=== PATIENT | female | born 1975 | race Caucasian/White ===

== ENCOUNTER 2024-03-25 08:05 | Outpatient (AMB) | payer OTHER, SELFPAY ==
--- NOTE | 2024-03-25 08:06 | MHC.OFFWIV ---
Intake Vital Signs 03/25/24 08:07 Height 5 ft 3 in Weight 241 lb BMI 42.7 BP 118/80 Blood Pressure Location Lt radial Position Sitting Pulse 112 H Pulse Source Pulse Oximeter Temp 99.1 F Temp Source Oral Pulse Oximetry (%) 98 Oxygen Delivery Method Room Air Intake Visit Reasons: EP Congestion, sore throat Intake Note: pt c/o congestion and sore throat. Started last week. Patient Tobacco Use Status: Never used Tobacco Allergies No Known Allergies Allergy (Verified 03/25/24 08:06) Do you need a note to return to daycare/school/sports/work: No HPI EP Congestion, sore throat HPI Details 48 yr old female presents to the office for a sick visit. Complains of shortness of breath for the past few days, congestion sx, minimal fever or chills. Family member is sick. [facility] Social History Patient Tobacco Use Status: Never used Tobacco Physical Exam Vital Signs: Last Vital Signs Temp 99.1 F 03/25/24 08:07 Pulse 112 H 03/25/24 08:07 BP 118/80 03/25/24 08:07 Pulse Ox 98 03/25/24 08:07 Oxygen Delivery Method Room Air 03/25/24 08:07 BMI result Body Mass Index 42.7 Const General: cooperative and healthy appearing Nutritional Appearance: well nourished Orientation/consciousness: patient oriented x3 Limitations: no limitations HEENT Head: Yes normal to inspection Eyes General: appearance normal, both eyes and all related structures Neck Neck: Yes normal visual inspection Chest Chest palpation & inspection: normal palpation of entire chest wall Resp Effort & Inspection: normal respiratory effort Neuro General: patient oriented x3 Results AMB Rapid Strep AMB Rapid Strep Negative Last Edit by Ryan De La Torre CMA on 03/25/24 08:23 Results Reviewed Results Reviewed: Laboratory Last Values Strep Scn Rapid [facility] Negative 03/25/24 08:13 Assessment & Plan Assessment & Plan (1) Upper respiratory infection, viral: Code(s): J06.9 - Acute upper respiratory infection, unspecified Plan: Azithromycin, prednisone and albuterol MDI given. Viral swab ordered. Will call with results Orders: Orders AMB Rapid Strep Screen Today Z13.9 - Encounter for screening, unspecified Coding Level of Care Code Est Pt Level 3 (17237) Diagnoses Upper respiratory infection, viral J06.9
[2024-03-25 08:07] VITALS: BP 118/80; PULSE 112; TEMP 37.3; O2SAT 98; BMI 42.7
== END 2024-03-25 08:30 | disposition home or self-care (01) ==
PROVIDERS: PCP Internal Medicine; Visit Provider Internal Medicine
DX: Z13.9 Encounter for screening, unspecified (principal); J06.9 Acute upper respiratory infection, unspecified
CPT/HCPCS: 87880; 99213

== ENCOUNTER 2024-03-25 09:26 | Outpatient (REF) | payer OTHER, SELFPAY ==
[2024-03-25 10:56] LABS: Influenza A PCR NEGATIVE (Negative); Influenza B PCR NEGATIVE (Negative); Resp Syncy Virus RNA Qual PCR NEGATIVE (Negative); SARS COV2 PCR INHOUSE POSITIVE (Negative)
== END 2024-03-25 09:27 | disposition home or self-care (01) ==
LOC: HO.LAB 09:26
PROVIDERS: Visit Provider Internal Medicine
DX: J06.9 Acute upper respiratory infection, unspecified (principal)
CPT/HCPCS: 0241U

== ENCOUNTER 2024-06-20 08:44 | Outpatient (REF) | payer OTHER, SELFPAY ==
[2024-06-20 13:14] LABS: MANUAL DIFF FLAG NO
[2024-06-20 13:20] LABS: Basophils Percent Auto 0.4 % (0-2); Eosinophils Absolute Auto 0.1 X10*3/uL (0.0-0.4); Eosinophils Percent Auto 1.7 % (0-4); Hematocrit 44.2 % (37.0-47.0); Hemoglobin 14.7 g/dl (12.0-16.0); Imm Gran Abs Auto 0.02 X10*3/uL (0.00-0.03); Imm Gran Pct Auto 0.3 % (0.0-0.4); Lymphocytes Absolute Auto 2.4 X10*3/uL (1.2-4.9); Lymphocytes Percent Auto 31.1 % (20-40); Mean Corpuscular HGB Conc 33.3 g/dl (31.0-35.0); Mean Corpuscular Volume 84.2 fL (80.0-98.0); Mean Platelet Volume 9.7 fL (9.4-12.3); Monocytes Absolute Auto 0.5 X10*3/uL (0.1-1.2); Monocytes Percent Auto 6.4 % (2-11); Neutrophils Absolute Auto 4.6 x10*3/uL (2.0-8.3); Neutrophils Percent Auto 60.1 % (45-73); Platelet Count 320 X10*3/uL (160-400); Red Blood Count 5.25 X10*6/uL (4.20-5.50); Red Cell Distribution Width 13.2 % (11.0-16.0); White Blood Count 7.6 X10*3/uL (4.8-10.8)
[2024-06-20 13:37] LABS: Appearance Urine Clear; Color Urine Yellow; Glucose Urine UA Negative (Negative); Leukocyte Esterase Urine Negative (Negative); Nitrite Urine Negative (Negative); PH 7.5 (5.0-9.0); Specific Gravity - Urine 1.015 (1.005-1.025); UMIC TRIGGER UACC YES; Urine Blood Small (1+) (Negative); Urine Ketones Negative (Negative); Urine Protein Trace mg/dL (Neg-Trace)
[2024-06-20 13:43] LABS: Alanine Aminotransferase 15 U/L (0-31); Albumin Level 4.4 g/dL (3.5-5.0); Alkaline Phosphatase 68 U/L (39-117); Anion Gap 15 (12-20); Aspartate Amino Transferase 24 U/L (5-31); Bilirubin Total 0.5 mg/dL (0.0-1.0); Blood Urea Nitrogen 11 mg/dL (9-16); Calcium 9.6 mg/dL (8.4-10.2); Carbon Dioxide 28 mmol/L (22-29); Chloride 101 mmol/L (96-108); Cholesterol 279 mg/dL (<200); Estimated Glomerular Filt Rate > 60; Glucose Fasting 94 mg/dL (60-99); HDL Cholesterol 66 mg/dL (>40); LDL Cholesterol Calculated 176 mg/dL (<100); Potassium 4.4 mmol/L (3.3-5.1); Sodium 140 mmol/L (135-145); Total Protein 7.8 g/dL (6.5-8.0); Triglycerides 187 mg/dL (<150)
[2024-06-20 13:51] LABS: Bacteria Urine Trace (None Seen); Hyaline Casts Urine 0-2 /LPF (0-2); RBC Urine 0-2 /HPF (0-2); WBC Urine 0-5 /HPF (0-5)
[2024-06-20 14:02] LABS: TSH reflex Free T4 0.51 uIU/mL (0.32-4.0)
[2024-06-27 14:02] LABS: Vitamin D 25-OH, D2 <4 ng/mL; Vitamin D 25-OH, D3 31 ng/mL; Vitamin D 25-OH, Total 31 ng/mL (30-100)
== END 2024-06-20 08:45 | disposition home or self-care (01) ==
LOC: HO.HMGCLDS 08:44
PROVIDERS: PCP Internal Medicine; Visit Provider Internal Medicine
DX: Z76.89 Persons encountering health services in other specified circumstances (principal); R00.0 Tachycardia, unspecified; E66.09 Other obesity due to excess calories; F41.1 Generalized anxiety disorder; R06.5 Mouth breathing; R05.8 Other specified cough
CPT/HCPCS: 36415; 80053; 80061; 81001; 82306; 84443; 85025; 96127

== ENCOUNTER 2024-06-20 08:44 | Outpatient (AMB) | payer OTHER, SELFPAY ==
[2024-06-20 08:46] VITALS: BP 142/90; PULSE 122; O2SAT 96; BMI 43.2
--- NOTE | 2024-06-20 08:46 | A.OFFPC_ITS ---
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 Allergies No Known Allergies Allergy (Verified 06/20/24 08:53) Medication List - Last Reconciled 06/20/24 by Francis Pozo MD albuterol sulfate 90 mcg/actuation 1 inh inhalation QID PRN Tobacco use date assessed: 06/20/24 Dental Screening Dental Screen Date: 06/20/24 Did you have a dental visit in the last 12 months?: Yes Did you have a dental problem in the last 6 months where you did not have access to dental care?: No Was dental information given to patient?: Patient has dentist 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 HPI Details Patient is a 48-year-old female came in today for establish care Patient says that she does not like to take medication She is morbidly obese and is looking for ways to lose weight I have ordered baseline labs with the patient We will book appointment with the dietitian Also tells me that she has been coughing at night since she has had COVID 2 months ago Patient have difficulty breathing from her nose she does not know why, tonsils were removed when she was young She does not want to see ENT specialist Patient does have allergies, I have sent Flonase nasal spray that she is to start using every night We talked about possibility of reflux, as she drink water all night because of dryness of her mouth But she does not want to take medication for that Complaining of tiredness during the day and sleepiness I have ordered sleep study for the patient to which she has agreed [facility] Patient declined to do colonoscopy Blood pressure is slightly elevated today along with elevated heart rate Patient says that it is because of anxiety She has no chest pains no shortness a breath, and no cough during the day Patient does have generalized anxiety disorder She is seeing therapist 2 times a week Patient says that she is afraid of in channel Especially losing her parents She is but have no children. We will set up another appointment after the lab reports and we will check the blood pressure again. ON LICENSE OF [facility] Social History Housing: House Patient Tobacco Use Status: Never used Tobacco e-Cigarette/Vaping Use: Never Used service: No Current occupational status: employed Cognitive needs: No Hearing needs: No Vision needs: Yes Questionnaire PHQ-9 Over the last 2 weeks, how often have you been bothered by any of the following problems? 1. Little interest or pleasure in doing things: not at all 2. Feeling down, depressed, or hopeless: not at all 3. Trouble falling or staying asleep, or sleeping too much: several days 4. Feeling tired or having little energy: several days 5. Poor appetite or overeating: not at all 6. Feeling bad about yourself - or that you are a failure or have let yourself or your family down: not at all 7. Trouble concentrating on things, such as reading the newspaper or watching television: not at all 8. Moving or speaking so slowly that other people could have noticed. Or the opposite - being so fidgety or restless that you have been moving around a lot more than usual: not at all 9. Thoughts that you would be better off or of hurting yourself in some way: not at all Total score: 2 Depression Screening Interpretation: Negative Depression Screening Done: Yes 45357 - PHQ-9 Billing: Yes Source: Developed by Drs. Mariano Turner, Desiree Hartman, Reilly Rivera and colleagues, with an educational scarlett from [email or web address]. Thrive Questionnaire Date Thrive assessed: 06/20/24 I am a: Patient What is your living situation today?: I have a steady place to live Within the past 12 months, did the food you bought not last and you didn't have the money to get more?: Never true Within the past 12 months, did you worry whether your food would run out before you got money to buy more?: Never true Do you have trouble paying for medicines?: No Do you have trouble getting transportation to medical appointments?: No Do you have trouble paying your heating and electricity bill?: No Do you have trouble taking care of your child, family member or friend?: No Do you have trouble with day-to-day activities such as bathing, preparing meals, shopping, managing finances, etc.?: No Are you currently unemployed and looking for a job?: No Are you interested in more education?: No Please select the resources that you would like help with: None Currently or been in a relationship where the following occur: No concerns reported THRIVE Score: 0 AUDIT C Alcohol Use Questionnaire (AUDIT-C) 1. How often do you have a drink containing alcohol?: Never 2. How many drinks containing alcohol do you have on a typical day when you are drinking?: 1 or 2 3. How often do you have six or more drinks on one occasion?: Never Total Score: 0 Score Reviewed/Action Taken: Yes MOLINA-7 AMB Questionnaire MOLINA-7 Date MOLINA - 7 assessed: 06/20/24 Feeling nervous, anxious, or on edge: 1 = Several days Not being able to stop or control worryin = Not at all Worrying too much about different things: 1 = Several days Trouble relaxin = Not at all Being so restless that it is hard to sit still: 0 = Not at all Becoming easily annoyed or irritable: 0 = Not at all Feeling afraid as if something awful might happen: 0 = Not at all Total MOLINA-7 score (0-4 normal; 5-9 mild; 10-14 moderate; 15-21 severe): 2 Source: Developed by Drs. Mariano Turner, Desiree Hartman, Reilly Rivera and colleagues, with an educational scarlett from [employer]. MOLINA-7 Assessment Billing MOLINA-7 Assessment Tool: MOLINA-7 Assessment 18358 Review of Systems Const Denies chills, Denies fever(s) and Denies headache(s) Eyes Denies blurry vision ENT Denies headache(s), Denies nasal discharge, Denies odynophagia and Denies sinus pain Card Denies chest pain at rest and Denies chest pain with activity Resp Denies cough and Denies hemoptysis GI Denies diarrhea, Denies odynophagia, Denies vomiting and Denies hematemesis Reports as per HPI Musc Denies abnormal gait Skin/Breast Reports as per HPI Neuro Denies Neuro-related abnormal movements, Denies Abnormal speech present, Denies abnormal gait, Denies headache(s) and Denies Sensory deficit (Neuro) Psych Denies mood swings and Denies paranoia Endo Reports as per HPI Prem/Lymph Reports as per HPI Aller/Immun Reports as per HPI Physical exam (Primary Care) Vital Signs: Last Vital Signs Pulse 122 H 06/20/24 08:46 BP 142/90 H 06/20/24 08:46 Pulse Ox 96 06/20/24 08:46 Oxygen Delivery Method Room Air 06/20/24 08:46 BMI result Body Mass Index 43.2 Tobacco/Smoking Status: Tobacco use Status Tobacco use date assessed 06/20/24 06/20/24 08:54 Patient Tobacco Use Status Never used Tobacco 06/20/24 08:47 e-Cigarette/Vaping Use Never Used 06/20/24 08:54 PHQ-9: PHQ-9 Score PHQ-9: Total score 2 06/20/24 09:18 Depression Screening Interpretation: Negative Thrive Assessment: Date of Thrive Assessment Date Thrive assessed 06/20/24 06/20/24 08:54 Currently or been in a relationship where the following occur: No concerns reported Const General: cooperative, comfortable and no acute distress Orientation/consciousness: patient oriented x3 HENMT Other: Narrow nasal passages Head: Yes normocephalic and Yes atraumatic Eyes General: appearance normal, both eyes and all related structures Pupils: Equal, round and reactive pupils present EOM: EOMs intact bilaterally Neck Neck: Yes supple and No lymphadenopathy Thyroid: Thyroid normal Lymphatic: no lymphadenopathy noted Resp Effort & Inspection: normal respiratory effort and able to speak in complete sentences Auscultation: clear to auscultation bilaterally Cardio Heart sounds: S1 normal heart sound present and S2 normal heart sound present GI Palpation (GI): Soft to palpation and nontender Auscultation: normal bowel sounds General: Yes no CVA tenderness Back/Spine/Pelvis Back: no CVA tenderness Skin General skin exam: elasticity normal and turgor normal Neuro General: patient oriented x3 and gait normal Cranial nerves: Yes Equal, round and reactive pupils present Speech: No Abnormal speech present Sensory Exam: No Sensory deficit (Neuro) Coordination: tandem gait normal and Romberg test negative Extrem General: Yes normal exam except as noted and No edema Coding Level of Care Code New Pt Level 5 (56591) Diagnoses Establishing care with new doctor, encounter for Z76.89 Tachycardia R00.0 Class 3 severe obesity due to excess calories without serious comorbidity with body mass index (BMI) of 40.0 to 44.9 in adult E66.813; E66.01; Z68.41 Body mass index: BMI 40.0-44.9 Obesity classification: adult class 3 (BMI >= 40) Serious obesity comorbidity presence: without serious comorbidity Anxiety, generalized F41.1 Mouth breathing R06.5 Nocturnal cough R05.8 Daytime somnolence R40.0 Tiredness R53.83 Additional Codes MOLINA-7 Assessment Billing - MOLINA-7 Assessment Tool: MOLINA-7 Assessment 74833 ([id number]) PHQ-9 - 18614 - PHQ-9 Billing: Yes ([id number]) Assessment & Plan Assessment & Plan (1) Establishing care with new doctor, encounter for: Code(s): Z76.89 - Persons encountering health services in other specified circumstances Category: Medical (2) Tachycardia: Code(s): R00.0 - Tachycardia, unspecified Category: Medical (3) Obesity due to excess calories: Code(s): E66.09 - Other obesity due to excess calories Category: Medical Qualifiers: Body mass index: BMI 40.0-44.9 Obesity classification: adult class 3 (BMI >= 40) Serious obesity comorbidity presence: without serious comorbidity Qualified Code(s): E66.813 - Obesity, class 3; E66.01 - Morbid (severe) obesity due to excess calories; Z68.41 - Body mass index [BMI] 40.0- 44.9, adult (4) Anxiety, generalized: Code(s): F41.1 - Generalized anxiety disorder Category: Medical (5) Mouth breathing: Code(s): R06.5 - Mouth breathing Category: Medical (6) Nocturnal cough: Code(s): R05.8 - Other specified cough Category: Medical (7) Daytime somnolence: Code(s): R40.0 - Somnolence Category: Medical (8) Tiredness: Code(s): R53.83 - Other fatigue Category: Medical Plan Patient is a 48-year-old female came in today for establish care Patient says that she does not like to take medication She is morbidly obese and is looking for ways to lose weight I have ordered baseline labs with the patient We will book appointment with the dietitian Also tells me that she has been coughing at night since she has had COVID 2 months ago Patient have difficulty breathing from her nose she does not know why, tonsils were removed when she was young She does not want to see ENT specialist Patient does have allergies, I have sent Flonase nasal spray that she is to start using every night We talked about possibility of reflux, as she drink water all night because of dryness of her mouth But she does not want to take medication for that Complaining of tiredness during the day and sleepiness I have ordered sleep study for the patient to which she has agreed She goes to [facility] Mammogram through them Patient declined to do colonoscopy Blood pressure is slightly elevated today along with elevated heart rate Patient says that it is because of anxiety She has no chest pains no shortness a breath, and no cough during the day Patient does have generalized anxiety disorder She is seeing therapist 2 times a week Patient says that she is afraid of in channel Especially losing her parents She is but have no children. We will set up another appointment after the lab reports and we will check the blood pressure again. 60 minutes spent in care of this patient, [id number] and coordination of care Orders: Orders Complete Blood Count Auto Diff Today E66.09 - Other obesity due to excess calories, F41.1 - Generalized anxiety disorder, R00.0 - Tachycardia, unspecified, R05.8 - Other specified cough, R06.5 - Mouth breathing, Z76.89 - Persons encountering health services in other specified circumstances RT home sleep study Today R06.5 - Mouth breathing, R40.0 - Somnolence, R53.83 - Other fatigue Comprehensive [place]. Panel Fast Today E66.09 - Other obesity due to excess calories, F41.1 - Generalized anxiety disorder, R00.0 - Tachycardia, u nspecified, R05.8 - Other specified cough, R06.5 - Mouth breathing, Z76.89 - Persons encountering health services in other specified circumstances Lipid Panel Today E66.09 - Other obesity due to excess calories, F41.1 - Generalized anxiety disorder, R00.0 - Tachycardia, unspecified, R05.8 - Other specified cough, R06.5 - Mouth breathing, Z76.89 - Persons encountering health services in other specified circumstances Vitamin D 25-OH (D2 and D3) Today E66.09 - Other obesity due to excess calories, F41.1 - Generalized anxiety disorder, R00.0 - Tachycardia, unspecified, R05.8 - Other specified cough, R06.5 - Mouth breathing, Z76.89 - Persons encountering health services in other specified circumstances TSH reflex Free T4 Today E66.09 - Other obesity due to excess calories, F41.1 - Generalized anxiety disorder, R00.0 - Tachycardia, unspecified, R05.8 - Other specified cough, R06.5 - Mouth breathing, Z76.89 - Persons encountering health services in other specified circumstances UA CC w/rflx Micro + Cult Today E66.09 - Other obesity due to excess calories, F41.1 - Generalized anxiety disorder, R00.0 - Tachycardia, unspecified, R05.8 - Other specified cough, R06.5 - Mouth breathing, Z76.89 - Persons encountering health services in other specified circumstances Medications: New fluticasone propionate 50 mcg/actuation (Flonase Allergy Relief) administer into each nostril 1 spray intranasal DAILY 16 grams 2RF
== END 2024-06-20 09:45 | disposition home or self-care (01) ==
PROVIDERS: PCP Internal Medicine; Visit Provider Internal Medicine
DX: R00.0 Tachycardia, unspecified (principal); Z76.89 Persons encountering health services in other specified circumstances; E66.01 Morbid (severe) obesity due to excess calories; Z68.41 Body mass index [BMI] 40.0-44.9, adult; F41.1 Generalized anxiety disorder

== ENCOUNTER 2024-06-26 08:13 | Outpatient (AMB) | payer OTHER, SELFPAY ==
--- NOTE | 2024-06-26 08:17 | A.OFFPC_ITS ---
Intake Visit Reasons: lab review Allergies No Known Allergies Allergy (Verified 06/26/24 08:19) Medication List - Last Reconciled 06/26/24 by Francis Pozo MD albuterol sulfate 90 mcg/actuation 1 inh inhalation QID PRN fluticasone propionate 50 mcg/actuation (Flonase Allergy Relief) 1 spray intranasal DAILY Tobacco use date assessed: 06/26/24 Dental Screening Dental Screen Date: 06/26/24 Did you have a dental visit in the last 12 months?: Yes Did you have a dental problem in the last 6 months where you did not have access to dental care?: No Was dental information given to patient?: Patient has dentist HPI lab review HPI Details f/u labs her Lipids are elevated, LDL is in 170s patient is still waiting for dietition apt i have sent message again to book that apt she is not interested in any medication we will manage with diet change at this time PFS Social History Housing: House Patient Tobacco Use Status: Never used Tobacco e-Cigarette/Vaping Use: Never Used service: No Current occupational status: employed Cognitive needs: No Hearing needs: No Vision needs: Yes Questionnaire Thrive Questionnaire Date Thrive assessed: 06/20/24 AUDIT C Alcohol Use Questionnaire (AUDIT-C) 1. How often do you have a drink containing alcohol?: Never 2. How many drinks containing alcohol do you have on a typical day when you are drinking?: 1 or 2 3. How often do you have six or more drinks on one occasion?: Never Total Score: 0 Score Reviewed/Action Taken: Yes MOLINA-7 AMB Questionnaire MOLINA-7 Date MOLINA - 7 assessed: 06/20/24 Source: Developed by Drs. Mariano Turner, Desiree Hartman, Reilly Rivera and colleagues, with an educational scarlett from [employer]. Review of Systems Const All systems reviewed & are unremarkable except as noted in HPI and below Physical exam (Primary Care) Tobacco/Smoking Status: Tobacco use Status Tobacco use date assessed 06/26/24 06/26/24 08:19 Patient Tobacco Use Status Never used Tobacco 06/26/24 08:18 e-Cigarette/Vaping Use Never Used 06/26/24 08:18 Thrive Assessment: Date of Thrive Assessment Date Thrive assessed 06/20/24 06/26/24 08:18 Telehealth Telehealth [facility]health [facility] Location of provider rendering services: practice address Location of patient: address on file Patient Identification confirmed using: Name, : Yes Telehealth method: voice only Patient verbally consented to treatment: Yes Patient verbally consented to billing insurance company: Yes Patient informed of any privacy concerns related to visit: Yes Minutes spent on Phone/Video with Pt.: 12 Coding Level of Care Code Tele Est Pt Level 3 (38582) Diagnoses Lipid disorder E78.9 Assessment & Plan Assessment & Plan (1) Lipid disorder: Code(s): E78.9 - Disorder of lipoprotein metabolism, unspecified Category: Medical Plan f/u labs her Lipids are elevated, LDL is in 170s patient is still waiting for dietition apt i have sent message again to book that apt she is not interested in any medication we will manage with diet change at this time
== END 2024-06-26 15:43 | disposition home or self-care (01) ==
LOC: HO.HMCC 08:13
PROVIDERS: PCP Internal Medicine; Visit Provider Internal Medicine
DX: E78.9 Disorder of lipoprotein metabolism, unspecified (principal)

== ENCOUNTER → 2024-06-26 08:13 | Outpatient (BNVA) | payer OTHER, SELFPAY | PROVIDERS: PCP Internal Medicine; Visit Provider Internal Medicine ==

== ENCOUNTER → 2024-08-04 11:50 | Outpatient (BNVA) | payer OTHER, SELFPAY | PROVIDERS: PCP Internal Medicine ==

== ENCOUNTER → 2024-08-07 12:20 | Outpatient (REF) | payer OTHER, SELFPAY | LOC: HO.SL 12:20 | PROVIDERS: PCP Internal Medicine; Visit Provider Internal Medicine | DX: G47.33 Obstructive sleep apnea (adult) (pediatric) (principal); R06.5 Mouth breathing; R40.0 Somnolence; R53.83 Other fatigue | CPT/HCPCS: 95806 ==

== ENCOUNTER → 2024-08-07 13:43 | Outpatient (BNV) | payer OTHER, SELFPAY | PROVIDERS: PCP Internal Medicine; Visit Provider Internal Medicine | DX: G47.33 Obstructive sleep apnea (adult) (pediatric) (principal) | CPT/HCPCS: 95806 ==

== ENCOUNTER 2024-08-21 08:22 | Outpatient (AMB) | payer OTHER, SELFPAY ==
--- NOTE | 2024-08-21 08:59 | A.OFFPC_ITS ---
Intake Visit Reasons: sleep study report Allergies No Known Allergies Allergy (Verified 08/21/24 08:59) Medication List - Last Reconciled 08/21/24 by Francis Pozo MD albuterol sulfate 90 mcg/actuation 1 inh inhalation QID PRN blood pressure monitor check blood pressure daily and as needed NS fluticasone propionate 50 mcg/actuation (Flonase Allergy Relief) 1 spray intranasal DAILY Tobacco use date assessed: 08/21/24 Dental Screening Dental Screen Date: 08/21/24 Did you have a dental visit in the last 12 months?: Yes Did you have a dental problem in the last 6 months where you did not have access to dental care?: No Was dental information given to patient?: Patient has dentist HPI sleep study report HPI Details Patient is a 48-year-old female who had sleep study done recently Which shows severe sleep apnea, patient is reluctant to start CPAP machine However she agrees after discussion I have placed referral to sleep specialist for further management. [facility] Social History Housing: House Patient Tobacco Use Status: Never used Tobacco e-Cigarette/Vaping Use: Never Used service: No Current occupational status: employed Cognitive needs: No Hearing needs: No Vision needs: Yes Questionnaire PHQ-9 Over the last 2 weeks, how often have you been bothered by any of the following problems? 1. Little interest or pleasure in doing things: not at all 2. Feeling down, depressed, or hopeless: not at all 3. Trouble falling or staying asleep, or sleeping too much: several days 4. Feeling tired or having little energy: several days 5. Poor appetite or overeating: not at all 6. Feeling bad about yourself - or that you are a failure or have let yourself or your family down: not at all 7. Trouble concentrating on things, such as reading the newspaper or watching television: not at all 8. Moving or speaking so slowly that other people could have noticed. Or the opposite - being so fidgety or restless that you have been moving around a lot more than usual: not at all 9. Thoughts that you would be better off or of hurting yourself in some way: not at all Total score: 2 Depression Screening Interpretation: Negative Depression Screening Done: Yes 42693 - PHQ-9 Billing: Yes Source: Developed by Drs. Mariano Turner, Reilly Valdes and colleagues, with an educational scarlett from [employer]. Thrive Questionnaire Date Thrive assessed: 08/21/24 I am a: Patient What is your living situation today?: I have a steady place to live Within the past 12 months, did the food you bought not last and you didn't have the money to get more?: Never true Within the past 12 months, did you worry whether your food would run out before you got money to buy more?: Never true Do you have trouble paying for medicines?: No Do you have trouble getting transportation to medical appointments?: No Do you have trouble paying your heating and electricity bill?: No Do you have trouble taking care of your child, family member or friend?: No Do you have trouble with day-to-day activities such as bathing, preparing meals, shopping, managing finances, etc.?: No Are you currently unemployed and looking for a job?: No Are you interested in more education?: No Please select the resources that you would like help with: None Currently or been in a relationship where the following occur: No concerns reported THRIVE Score: 0 AUDIT C Alcohol Use Questionnaire (AUDIT-C) 1. How often do you have a drink containing alcohol?: Never 3. How often do you have six or more drinks on one occasion?: Never Total Score: 0 Score Reviewed/Action Taken: Yes MOLINA-7 AMB Questionnaire MOLINA-7 Date MOLINA - 7 assessed: 08/21/24 Feeling nervous, anxious, or on edge: 0 = Not at all Not being able to stop or control worryin = Not at all Worrying too much about different things: 0 = Not at all Trouble relaxin = Not at all Being so restless that it is hard to sit still: 0 = Not at all Becoming easily annoyed or irritable: 0 = Not at all Feeling afraid as if something awful might happen: 0 = Not at all Total MOLINA-7 score (0-4 normal; 5-9 mild; 10-14 moderate; 15-21 severe): 0 Source: Developed by Desiree Gallagher Kurt Kroenke and colleagues, with an educational scarlett from [employer]. MOLINA-7 Assessment Billing MOLINA-7 Assessment Tool: MOLINA-7 Assessment 17280 Review of Systems Const Denies chills and Denies fever(s) ENT Denies epistaxis and Denies nasal discharge Card Denies chest pain Resp Denies chest congestion, Denies cough and Denies hemoptysis GI Denies diarrhea and Denies nausea Skin/Breast Denies rash Neuro Reports no additional complaints Psych Reports no additional complaints Endo Reports no additional complaints Physical exam (Primary Care) Tobacco/Smoking Status: Tobacco use Status Tobacco use date assessed 08/21/24 08/21/24 09:00 Patient Tobacco Use Status Never used Tobacco 08/21/24 09:00 e-Cigarette/Vaping Use Never Used 08/21/24 09:00 PHQ-9: PHQ-9 Score PHQ-9: Total score 2 08/21/24 09:39 Depression Screening Interpretation: Negative Thrive Assessment: Date of Thrive Assessment Date Thrive assessed 08/21/24 08/21/24 09:00 Currently or been in a relationship where the following occur: No concerns reported Telehealth Telehealth Telehealth Platform: [employer] Location of provider rendering services: practice address Location of patient: address on file Patient Identification confirmed using: Name, : Yes Telehealth method: voice only Patient verbally consented to treatment: Yes Patient verbally consented to billing insurance company: Yes Patient informed of any privacy concerns related to visit: Yes Minutes spent on Phone/Video with Pt.: 13 Coding Level of Care Code Tele Est Pt Level 3 (10789) Diagnoses Obstructive sleep apnea, adult G47.33 Additional Codes MOLINA-7 Assessment Billing - MOLINA-7 Assessment Tool: MOLINA-7 Assessment 51324 ([id number]) PHQ-9 - 93464 - PHQ-9 Billing: Yes ([id number]) Assessment & Plan Assessment & Plan (1) Obstructive sleep apnea, adult: Code(s): G47.33 - Obstructive sleep apnea (adult) (pediatric) Category: Medical Plan Patient is a 48-year-old female who had sleep study done recently Which shows severe sleep apnea, patient is reluctant to start CPAP machine However she agrees after discussion I have placed referral to sleep specialist for further management. Orders: Referrals Sleep Medicine Referral G47.33 - Obstructive sleep apnea (adult) (pediatric)
== END 2024-08-21 11:33 | disposition home or self-care (01) ==
LOC: HO.HMCC 08:22
PROVIDERS: PCP Internal Medicine; Visit Provider Internal Medicine
DX: G47.33 Obstructive sleep apnea (adult) (pediatric) (principal)

== ENCOUNTER → 2024-08-21 08:22 | Outpatient (BNVA) | payer OTHER, SELFPAY | PROVIDERS: PCP Internal Medicine; Visit Provider Internal Medicine | DX: G47.33 Obstructive sleep apnea (adult) (pediatric) (principal) | CPT/HCPCS: 96127 ==

== ENCOUNTER 2024-09-01 14:46 | Outpatient (AMB) | payer OTHER, SELFPAY ==
--- NOTE | 2024-09-01 14:50 | MHC.OFFVIS ---
Vital Signs 09/01/24 14:52 Height 5 ft 3 in Weight 247 lb BMI 43.7 BP 164/80 H Blood Pressure Location Lt brachial Position Sitting Pulse 108 H Pulse Source Pulse Oximeter Pulse Oximetry (%) 97 Oxygen Delivery Method Room Air Intake Visit Reasons: INP- TRAN Intake Note: Patient presents for new patient evaluation for TRAN. Accompanied by: Self / Same As Patient Allergies No Known Allergies Allergy (Verified 09/01/24 14:51) Medication List - Last Reconciled 09/01/24 by Maryuri Oakley PA-C albuterol sulfate 90 mcg/actuation 1 inh inhalation QID PRN blood pressure monitor check blood pressure daily and as needed NS fluticasone propionate 50 mcg/actuation (Flonase Allergy Relief) 1 spray intranasal DAILY PRN HPI Comments Details: 48 year old patient referred to us by her PCP for a sleep evaluation. HST Aug 20, 2024, Severe TRAN SHANEKA was 40 O2 desat to 88. Start CPAP at [id number] She goes to bed at 10, wakes up at 6am, has one bathroom break, and is using 2 pillows to elevated her head to sleep. She has stress induced, abnormal sleep behavior, talking, grunting, moaning. She has a few morning headaches, that are hormonal usually during her cycle and 2 days a week. Her memory is good, she does multi-task and works on the computer all day M-F. Mood is better, speaks with the general warehouse worker, as she is concerned about losing weight. Her water intake is good, she walks daily with her dog, she is doing sarah 2-3x. She works from home so is mindful of getting plenty of activities in daily. She has white coat hypertension, her BP is 164/80, HR 108, and has started monitoring it at home daily. RLS: She feels like she has to move her legs constantly, and she rubs them down with lotion and 1x - 2x a month. Mood is improved as she is working with a general warehouse worker. [facility] Social History Housing: House Patient Tobacco Use Status: Never used Tobacco e-Cigarette/Vaping Use: Never Used service: No Current occupational status: employed Cognitive needs: No Hearing needs: No Vision needs: Yes Review of Systems Const All systems reviewed & are unremarkable except as noted in HPI and below Physical Exam Vital Signs: Last Vital Signs Pulse 108 H 09/01/24 14:52 BP 164/80 H 09/01/24 14:52 Pulse Ox 97 09/01/24 14:52 Oxygen Delivery Method Room Air 09/01/24 14:52 BMI result Body Mass Index 43.7 Const General: cooperative and comfortable Nutritional Appearance: obese and overweight (BMI is 43.8) Orientation/consciousness: patient oriented x3 Eyes Pupils: Equal, round and reactive pupils present Neck Neck: Yes full ROM Resp Effort & Inspection: normal respiratory effort and able to speak in complete sentences Neuro General: patient oriented x3 and moves all extremities Cranial nerves: Yes CN's II-XII intact bilaterally, Yes Facial sensation intact/muscles of mastication intact, Yes Equal, round and reactive pupils present, Yes Normal accommodation reflex present, Yes Bilaterally intact EOM present, Yes Nystagmus not present, Yes Normal facial strength present, Yes Midline tongue present, Yes Symmetric palate elevation present, Yes Ability to bilaterally rotate head present and Yes Ability to bilaterally elevate shoulders present Gait exam (Neuro): Normal gait present Motor exam (neuro): 5/5 motor strength present throughout and Normal motor muscle tone present throughout Deep tendon reflexes (DTR's): Right triceps reflex intensity grade: 2+, Left triceps reflex intensity grade: 2+, Rt Biceps (C5, C6): 2+, Left biceps reflex intensity grade: 2+, Right brachioradialis reflex intensity grade: 2+, Left brachioradialis reflex intensity grade: 2+, Right patellar reflex intensity grade: 2+ and Left patellar reflex intensity grade: 2+ Psych Appearance: grossly normal Mental Status: mental status grossly normal Speech and movement: Normal speech and movement present Attitude: cooperative Thought process: Normal thought process present Thought content: Normal thought content present Insight: Good insight present (Psych) Judgement: Good judgement present (Psych) Results Reviewed Results Reviewed: Labs: Cholesterol is elevated Sleep Study Aug 20, 2024 Severe TRAN AHI is 40.5 O2 Ronaldo to 88% Start CPAP 6-20cm H20 Assessment & Plan Assessment & Plan (1) RLS (restless legs syndrome): Code(s): G25.81 - Restless legs syndrome Category: Medical (2) Obstructive sleep apnea, adult: Code(s): G47.33 - Obstructive sleep apnea (adult) (pediatric) Category: Medical (3) Tiredness: Code(s): R53.83 - Other fatigue Category: Medical (4) Daytime somnolence: Code(s): R40.0 - Somnolence Category: Medical (5) Obesity due to excess calories: Code(s): E66.09 - Other obesity due to excess calories Category: Medical Qualifiers: Obesity classification: adult class 3 (BMI >= 40) Serious obesity comorbidity presence: without serious comorbidity Body mass index: BMI 40.0-44.9 Qualified Code(s): E66.813 - Obesity, class 3; E66.01 - Morbid (severe) obesity due to excess calories; Z68.41 - Body mass index [BMI] 40.0-44.9, adult (6) Tachycardia: Code(s): R00.0 - Tachycardia, unspecified Category: Medical Plan TRAN and HTN: -Will refer patient to [facility], as she continues to have difficulties with Sleep, due to severe TRAN. -Stressed compliance of CPAP nightly, as patient has HTN and severe sleep apnea. AHI is 40.5 and O2 Ronaldo to 88% -Bruxism: Mouth gaurd - dentist or [facility] temporarily as needed, to extend the lower jaw. -HTN is the #1 modifiable RF to avoid CV events, AHA recommends Dash Diet, or Mediterranean Diet along with daily exercise and weight reduction. Discussed weight loss, as BMI is elevated, she is thinking about a GLP-1 agonist. -Will refer patient to [facility], as he continues to have difficulties with current sleep. Patient Education: Maintain a strict sleep schedule, cool, dark room, no devices in bed. You may read a book, and use red light therapy in bed. Limit fluids after 4pm. RLS? PLMD? PLMS? Abnormal mvmts during sleep, will address at future visit. F/U in 3 months. Medications: New cholecalciferol (vitamin D3) 1,250 mcg PO QWEEK 30 caps 0RF Subumua NELIA Oakley thiamine HCl (vitamin B1) 250 mg PO DAILY 30 tabs 2RF Restless leg syndrome Eladioa NELIA Oakley G25.81 - Restless legs syndrome pyridoxine (vitamin B6) 250 mg PO DAILY 30 tabs 2RF Restless Leg Syndrome MDD 250mg Maryuri Oakley PA-C Changed From fluticasone propionate 50 mcg/actuation (Flonase Allergy Relief) administer into each nostril 1 spray intranasal DAILY 16 grams 2RF To fluticasone propionate 50 mcg/actuation (Flonase Allergy Relief) administer into each nostril 1 spray intranasal DAILY PRN Francis Pozo MD Coding Level of Care Code New Pt Level 4 (29501) Diagnoses RLS (restless legs syndrome) G25.81 Obstructive sleep apnea, adult G47.33 Tiredness R53.83 Daytime somnolence R40.0 Class 3 severe obesity due to excess calories without serious comorbidity with body mass index (BMI) of 40.0 to 44.9 in adult E66.813; E66.01; Z68.41 Obesity classification: adult class 3 (BMI >= 40) Serious obesity comorbidity presence: without serious comorbidity Body mass index: BMI 40.0-44.9 Tachycardia R00.0 Sleep Questionnaire Difficulty falling asleep: No Difficulty staying asleep?: Yes Snoring: Yes Witnessed apneas: No Gasping arousals: Yes Nocturia: Yes (1x ) GERD: No Vivid dreams: Yes Acting out dreams: Yes (Stress related ) Abnormal behavior in sleep: Yes (Grunting/ Moaning/ Talking ) Abnormal movements in sleep: No Morning headaches: Yes (only hormonal takes Excecederin and goes away) Excessive daytime sleepiness: No Daytime naps: Yes (1-2 x a week.) Restless legs: Yes (L>R ) Hallucinations: No Sleep paralysis: No Drop attacks: No Sleep Study: Yes (Jul 2024 ) CPAP: No
[2024-09-01 14:52] VITALS: BP 164/80; PULSE 108; O2SAT 97; BMI 43.7
== END 2024-09-01 16:15 | disposition home or self-care (01) ==
PROVIDERS: PCP Internal Medicine; Visit Provider Physician Assistant Medical
DX: G25.81 Restless legs syndrome (principal); G47.33 Obstructive sleep apnea (adult) (pediatric); R53.83 Other fatigue; R40.0 Somnolence; E66.813 Obesity, class 3; E66.01 Morbid (severe) obesity due to excess calories; Z68.41 Body mass index [BMI] 40.0-44.9, adult; R00.0 Tachycardia, unspecified
CPT/HCPCS: 99204

== ENCOUNTER → 2024-09-01 14:46 | Outpatient (BNVA) | payer OTHER, SELFPAY | PROVIDERS: PCP Internal Medicine; Visit Provider Physician Assistant Medical ==

== ENCOUNTER 2024-12-31 14:43 | Outpatient (AMB) | payer OTHER, SELFPAY ==
--- NOTE | 2024-12-31 14:57 | MHC.OFFVIS ---
Vital Signs 12/31/24 14:58 Height 5 ft 3 in Weight 234 lb 4 oz BMI 41.5 BP 140/90 H Blood Pressure Location Lt brachial Position Sitting Pulse 102 H Pulse Source Pulse Oximeter Pulse Oximetry (%) 99 Oxygen Delivery Method Room Air Intake Visit Reasons: 3mon follow-up Intake Note: Patient presents follow up RLS/TRAN. Compliance in chart(57/90 days, >=4hrs-53days, Median Pressure-12.4, Median Leaks-0.9, AHI-2.5). Allergies No Known Allergies Allergy (Verified 12/31/24 15:03) Medication List - Last Reviewed 12/31/24 by GAVINO Griffith albuterol sulfate 90 mcg/actuation 1 inh inhalation QID PRN blood pressure monitor check blood pressure daily and as needed NS cholecalciferol (vitamin D3) 1,250 mcg PO QWEEK fluticasone propionate 50 mcg/actuation (Flonase Allergy Relief) 1 spray intranasal DAILY PRN pyridoxine (vitamin B6) 250 mg PO DAILY MDD 250mg HPI Comments Details: 49 year old patient with HTN presents for a f/u of TRAN. HST Aug 20, 2024, Severe TRAN AHI was 40/hr and O2 mariaelena to 88%, she started CPAP at [id number]. She has significantly improved sleep now, she no longer snores, and wakes up without headaches. She trialed various masks, and now is using the nose pillows with good outcomes, she goes to bed at 10, wakes up at 6am, has one bathroom break, still elevates herself with 2 pillows. She has stress induced, abnormal sleep behavior, talking, grunting, moaning. Her memory is good, she multi-tasks and works from home on the computer all week long, M-F. Now she notices her mood is so much better, she continues to speak with the financial professional as she is motivated to lose weight. Her water intake is good, she walks daily with her dog, and is doing sarah 2-3x per week. She has white coat hypertension, and her BP today is 140/90, pulse is 102, she says at home it is usually lower and has started monitoring it at home daily. RLS symptoms she denies any numbness, pins, needles, spasms, cramps, burning or uncomfortable sensations, she didn't understand what RLS was until recently, says she ocassionally has pain in her feet bilaterally from over doing it on nights with sarah but it is not RLS. We reviewed labs again today, and reminded patient about the importance of diet and exercise and she has lost 13 pounds. [facility] Social History Housing: House Patient Tobacco Use Status: Never used Tobacco e-Cigarette/Vaping Use: Never Used service: No Current occupational status: employed Cognitive needs: No Hearing needs: No Vision needs: Yes Physical Exam Vital Signs: Last Vital Signs Pulse 102 H 12/31/24 14:58 BP 140/90 H 12/31/24 14:58 Pulse Ox 99 12/31/24 14:58 Oxygen Delivery Method Room Air 12/31/24 14:58 BMI result Body Mass Index 41.5 Const General: cooperative, comfortable and no acute distress Nutritional Appearance: obese Orientation/consciousness: patient oriented x3 HEENT Face and sinus: Yes face symmetric Eyes Pupils: Equal, round and reactive pupils present Neck Neck: Yes full ROM Resp Effort & Inspection: normal respiratory effort and able to speak in complete sentences Neuro General: patient oriented x3 and moves all extremities Cranial nerves: Yes Facial sensation intact/muscles of mastication intact, Yes Equal, round and reactive pupils present, Yes Normal accommodation reflex present, Yes Normal facial strength present, Yes Midline tongue present, Yes Ability to bilaterally rotate head present and Yes Ability to bilaterally elevate shoulders present Cognition (Neuro): normal cognition Gait exam (Neuro): Normal gait present Psych Thought process: Normal thought process present Thought content: Normal thought content present Results Reviewed Results Reviewed: TRAN Compliant report 09/24/2024 -12/22/2024 *she received her Cpap machine in October and immediately started to use it. >4 hours 53 days and 59%, avg use total days 4 hours and 39 min Press [id number], press median 12.4cmH20, leaks 0.9, AHI is 2.5/hr Assessment & Plan Assessment & Plan (1) Obstructive sleep apnea, adult: Code(s): G47.33 - Obstructive sleep apnea (adult) (pediatric) Category: Medical (2) Anxiety, generalized: Code(s): F41.1 - Generalized anxiety disorder Category: Medical Plan TRAN patient is on cpap therapy with good outcomes and refreshing sleep. HTN is the #1 modifiable RF to avoid CV events, AHA recommends Dash Diet, or Mediterranean Diet along with daily exercise and weight reduction. Discussed weight loss, as BMI is elevated, she is thinking about a GLP-1 agonist. RLS? will monitor start B6 200mg po at bedtime, start magnesium 400mg po at bedtime, may take every other day if loose stools. F/U in 6 months. Medications: New magnesium oxide take one tablet at night daily prior to bed. 400 mg PO DAILY 90 days 90 tabs 3RF sleep MDD 400mg F41.1 - Generalized anxiety disorder Refilled pyridoxine (vitamin B6) 250 mg PO DAILY 30 tabs 2RF Restless Leg Syndrome MDD 250mg Patient Instructions: Sleep Hygiene provided: set a scheduled bedtime and wake time to help regulate the circadian rhythm and balance the release of pituitary hormones. Sleep in a dark room, temperatures below 68 degrees, and no devices n bed. Limit caffeinated products 6 hours prior to bed, and limit fluids 2-4 hours prior to bed. Gentle night yoga, diffusing essential oils, and playing soft music can be relaxing. Wash mask and tubing daily, replace filters and fill reservoir as needed. Continue to walk and or swim whichever is more tolerable daily and continue to drink 60% of body weight in water. F/U in 6 months Coding Level of Care Code Est Pt Level 4 (61144) Diagnoses Obstructive sleep apnea, adult G47.33 Anxiety, generalized F41.1 Time Spent (min) 30
[2024-12-31 14:58] VITALS: BP 140/90; PULSE 102; O2SAT 99; BMI 41.5
== END 2024-12-31 15:38 | disposition home or self-care (01) ==
LOC: HO.HSMS 14:44
PROVIDERS: PCP Internal Medicine; Visit Provider Physician Assistant Medical
DX: G47.33 Obstructive sleep apnea (adult) (pediatric) (principal); F41.1 Generalized anxiety disorder
CPT/HCPCS: 99214

== ENCOUNTER 2025-01-23 10:57 | Outpatient (AMB) | payer OTHER, SELFPAY ==
--- NOTE | 2025-01-23 11:01 | A.OFFPC_ITS ---
Vital Signs 01/23/25 11:03 Height 5 ft 3 in Weight 240 lb 2 oz BMI 42.5 BP 136/84 Blood Pressure Location Rt brachial Position Sitting Pulse 96 Pulse Source Pulse Oximeter Temp 98.1 F Temp Source Oral Pulse Oximetry (%) 98 Oxygen Delivery Method Room Air Intake Visit Reasons: Leg pain left Allergies No Known Allergies Allergy (Verified 01/23/25 11:03) Medication List - Last Reconciled 01/23/25 by Francis Pozo MD albuterol sulfate 90 mcg/actuation 1 inh inhalation QID PRN blood pressure monitor check blood pressure daily and as needed NS cholecalciferol (vitamin D3) 1,250 mcg PO QWEEK fluticasone propionate 50 mcg/actuation (Flonase Allergy Relief) 1 spray intranasal DAILY PRN magnesium oxide 400 mg PO DAILY 90 days MDD 400mg pyridoxine (vitamin B6) 250 mg PO DAILY MDD 250mg Tobacco use date assessed: 01/23/25 Dental Screening Dental Screen Date: 01/23/25 Did you have a dental visit in the last 12 months?: Yes Did you have a dental problem in the last 6 months where you did not have access to dental care?: No Was dental information given to patient?: Patient has dentist HPI Leg pain left HPI Details History - The patient is a 49-year-old female pr esenting with intermittent burning pain in the left leg, probable sciatica. - The issue began at the beginning of y after participating in [employer] classes. - The burning pain was severe enough to wake her from sleep. - Initial concern was a potential blood clot; patient researched and considered sciatica as a cause. - The pain radiated to the left buttock area. - Pain episodes are intermittent and ini tially alleviated upon calming down. - Active pain has not recurred in a few weeks, with minor numbness occasionally during prolonged sitting. - Pain is absent during walking or exerc ise, only present at rest. - Symptomatic relief has been achieved w ith Aleve or ibuprofen when pain arises. - Positions aggravating the pain include sleeping on the left side, as it adds pressure. - No associated back pain. - Use of pillows has been attempted to a lleviate symptoms during sleep. - Symptoms are managed by reducing activ ities exacerbating the condition, such as avoiding Deborah temporarily. - No recent episodes upon resuming Deborah . Medical History: - History of use of a sleep machine for sleep apnea. - Previous dissatisfaction with caffeine , leading to cessation. - Past laboratory results indicated high cholesterol. Medications: - Vitamins, including Vitamin A. - Magnesium for leg pain and cramps. 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 - Participates in [employer] regularly for ex ercise. - Cessation of caffeine intake and manag ing weight post-sleep machine initiation. Diagnostic Results: - Labs: Cholesterol was found to be high in previous testing. - Tests and diagnostics: Plan for x-ray imaging of the back. Problem List - Suspected Sciatica - Hypercholesterolemia - morbid obesity with BMI of 42.5 Patient Instructions - Monitor for recurrence of leg pain; ta ke Aleve or ibuprofen if pain returns. - Modify sleeping positions to reduce pr essure on affected side (e.g., placing pillows). - Schedule a physical exam to check and potentially repeat labs. - Attend x-ray appointment for further a ssessment of leg pain while at rest. Review of Systems - General: No fever no chills - Neurological: No headaches no dizziness - Ear nose throat: No sore throat no hearing difficulty no ear pain - Cardiovascular: No syncope, no chest pain, no palpitations - Gastrointestinal: No nausea vomiting or diarrhea - Endocrine: No polyuria polydipsia no heat intolerance - Genitourinary: No dysuria , no blood in urine Physical Exam General: No acute distress HEENT: No acute findings Neck: Supple, no pain on movement Respiratory system: Able to talk in full sentences, no audible wheeze Cardiovascular: S1-S2 regular in rate and rhythm Gastrointestinal: No pain Back exam benign no pain with percussion Extremities: No new findings, no pain on movement, no pain when walking or exercising, hip and knee pain with full range of motion [employer]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 1. Little interest or pleasure in doing things: not at all 2. Feeling down, depressed, or hopeless: several days 3. Trouble falling or staying asleep, or sleeping too much: not at all 4. Feeling tired or having little energy: not at all 5. Poor appetite or overeating: not at all 6. Feeling bad about yourself - or that you are a failure or have let yourself or your family down: not at all 7. Trouble concentrating on things, such as reading the newspaper or watching television: not at all 8. Moving or speaking so slowly that other people could have noticed. Or the opposite - being so fidgety or restless that you have been moving around a lot more than usual: not at all 9. Thoughts that you would be better off or of hurting yourself in some way: not at all Total score: 1 Depression Screening Interpretation: Negative Depression Screening Done: Yes [id number] - PHQ-9 Billing: Yes Source: Developed by Drs. Mariano Turner, Desiree Hartman, Reilly Rivera and colleagues, with an educational scarlett from [email or web address]. Thrive Questionnaire Date Thrive assessed: 01/22/25 I am a: Patient What is your living situation today?: I have a steady place to live Within the past 12 months, did the food you bought not last and you didn't have the money to get more?: Never true Within the past 12 months, did you worry whether your food would run out before you got money to buy more?: Never true Do you have trouble paying for medicines?: No Do you have trouble getting transportation to medical appointments?: No Do you have trouble paying your heating and electricity bill?: No Do you have trouble taking care of your child, family member or friend?: No Do you have trouble with day-to-day activities such as bathing, preparing meals, shopping, managing finances, etc.?: No Are you currently unemployed and looking for a job?: No Are you interested in more education?: I choose not to answer this question Please select the resources that you would like help with: None Currently or been in a relationship where the following occur: No concerns reported THRIVE Score: 0 AUDIT C Alcohol Use Questionnaire (AUDIT-C) 1. How often do you have a drink containing alcohol?: Never 3. How often do you have six or more drinks on one occasion?: Never Total Score: 0 MOLINA-7 AMB Questionnaire MOLINA-7 Date MOLINA - 7 assessed: 08/21/24 Feeling nervous, anxious, or on edge: 1 = Several days Not being able to stop or control worryin = Not at all Worrying too much about different things: 1 = Several days Trouble relaxin = Not at all Being so restless that it is hard to sit still: 0 = Not at all Becoming easily annoyed or irritable: 0 = Not at all Feeling afraid as if something awful might happen: 0 = Not at all Total MOLINA-7 score (0-4 normal; 5-9 mild; 10-14 moderate; 15-21 severe): 2 Source: Developed by Drs. Mariano Turner, Desiree Hartman, Reilly Rivera and colleagues, with an educational scarlett from [email or web address]. Physical exam (Primary Care) Vital Signs: Last Vital Signs Temp 98.1 F 01/23/25 11:03 Pulse 96 01/23/25 11:03 BP 136/84 01/23/25 11:03 Pulse Ox 98 01/23/25 11:03 Oxygen Delivery Method Room Air 01/23/25 11:03 BMI result Body Mass Index 42.5 Tobacco/Smoking Status: Tobacco use Status Tobacco use date assessed 01/23/25 01/23/25 11:07 Patient Tobacco Use Status Never used Tobacco 01/23/25 11:07 e-Cigarette/Vaping Use Never Used 01/23/25 11:07 PHQ-9: PHQ-9 Score PHQ-9: Total score 1 01/23/25 11:07 Depression Screening Interpretation: Negative Thrive Assessment: Date of Thrive Assessment Date Thrive assessed 01/22/25 01/23/25 11:07 Currently or been in a relationship where the following occur: No concerns reported Coding Level of Care Code Est Pt Level 4 (31812) Diagnoses Left lumbar radiculitis M54.16 Lipid disorder E78.9 Morbid obesity due to excess calories E66.01 Additional Codes PHQ-9 - 80164 - PHQ-9 Billing: Yes ([id number]) Assessment & Plan Assessment & Plan (1) Left lumbar radiculitis: Code(s): M54.16 - Radiculopathy, lumbar region Category: Medical (2) Lipid disorder: Code(s): E78.9 - Disorder of lipoprotein metabolism, unspecified Category: Medical (3) Morbid obesity due to excess calories: Comment: If your BMI is between 25 and 29.9, you are overweight. If your BMI is 30 or greater, you are obese. ___ Being obese is a problem, because it increases the risks of many different health problems. It can also make it hard for you to move, breathe, and do other things that people who are at a healthy weight can do easily. Plus, being obese can be hard emotionally. ___ What are the health risks of being obese? Being obese increases a persons risk of developing many health problems. Here are just a few examples: __ Diabetes High blood pressure, High cholesterol, Heart disease (including heart attacks) Stroke, Sleep apnea (a disorder in which you stop breathing for short periods while asleep) Asthma, Cancer __ Does being obese shorten a persons life? Yes. Studies show that people who are obese younger than people who are a healthy weight. They also show that the risk of goes up the heavier a person is. The degree of increased risk depends on how long the person has been obese, and on what other medical problems he or she has. , Reduce your carbohydrate intake and choose carbs that are complex. Remember as a general rule of thumb, avoid highly processed foods. If it's white and soft, it's probably been stripped of its nutritional value. Change white bread to whole wheat bread, white rice to brown rice, white potatoes to sweet potatoes, white pasta to whole wheat pasta. Monitor portion sizes too: protein should be no bigger than your fist. Limit your red meat intake to only once or twice a wk. Eat more white meat but make sure to avoid creamy sauces etc. Broiling, baking or grilling is best. Increase dark, green leafy vegetables and fruits. . Code(s): E66.01 - Morbid (severe) obesity due to excess calories Category: Medical Plan History - The patient is a 49-year-old female presenting with intermittent burning pain in the left leg, probable sciatica. - The issue began at the beginning of December after participating in [employer] classes. - The burning pain was severe enough to wake her from sleep. - Initial concern was a potential blood clot; patient researched and considered sciatica as a cause. - The pain radiated to the left buttock area. - Pain episodes are intermittent and initially alleviated upon calming down. - Active pain has not recurred in a few weeks, with minor numbness occasionally during prolonged sitting. - Pain is absent during walking or exercise, only present at rest. - Symptomatic relief has been achieved with Aleve or ibuprofen when pain arises. - Positions aggravating the pain include sleeping on the left side, as it adds pressure. - No associated back pain. - Use of pillows has been attempted to alleviate symptoms during sleep. - Symptoms are managed by reducing activities exacerbating the condition, such as avoiding Deborah temporarily. - No recent episodes upon resuming Deborah. Medical History: - History of use of a sleep machine for sleep apnea. - Previous dissatisfaction with caffeine, leading to cessation. - Past laboratory results indicated high cholesterol. Medications: - Vitamins, including Vitamin A. - Magnesium for leg pain and cramps. 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 - Participates in [employer] regularly for exercise. - Cessation of caffeine intake and managing weight post-sleep machine initiation. Diagnostic Results: - Labs: Cholesterol was found to be high in previous testing. - Tests and diagnostics: Plan for x-ray imaging of the back. Problem List - Suspected Sciatica - Hypercholesterolemia - morbid obesity with BMI of 42.5 Patient Instructions - Monitor for recurrence of leg pain; take Aleve or ibuprofen if pain returns. - Modify sleeping positions to reduce pressure on affected side (e.g., placing pillows). - Schedule a physical exam to check and potentially repeat labs. - Attend x-ray appointment for further assessment of leg pain while at rest. Orders: Orders XR lumbar spine 2-3V Today M54.16 - Radiculopathy, lumbar region Vitamin D 25-OH (D2 and D3) Today E66.01 - Morbid (severe) obesity due to excess calories, E78.9 - Disorder of lipoprotein metabolism, unspecified, M54.16 - Radiculopathy, lumbar region Lipid Panel Today E66.01 - Morbid (severe) obesity due to excess calories, E78.9 - Disorder of lipoprotein metabolism, unspecified, M54.16 - Radiculopathy, lumbar region Complete Blood Count Auto Diff Today E66.01 - Morbid (severe) obesity due to excess calories, E78.9 - Disorder of lipoprotein metabolism, unspecified, M54.16 - Radiculopathy, lumbar region Comprehensive [place]. Panel Fast Today E66.01 - Morbid (severe) obesity due to excess calories, E78.9 - Disorder of lipoprotein metabolism, unspecified, M54.16 - Radiculopathy, lumbar region TSH reflex Free T4 Today E66.01 - Morbid (severe) obesity due to excess calories, E78.9 - Disorder of lipoprotein metabolism, unspecified, M54.16 - Radiculopathy, lumbar region
[2025-01-23 11:03] VITALS: BP 136/84; PULSE 96; TEMP 36.7; O2SAT 98; BMI 42.5
== END 2025-01-23 11:23 | disposition home or self-care (01) ==
LOC: HO.HMCC 10:58
PROVIDERS: PCP Internal Medicine; Visit Provider Internal Medicine
DX: M54.16 Radiculopathy, lumbar region (principal); E78.9 Disorder of lipoprotein metabolism, unspecified; E66.01 Morbid (severe) obesity due to excess calories; Z68.41 Body mass index [BMI] 40.0-44.9, adult

== ENCOUNTER 2025-01-23 10:57 | Outpatient (REF) | payer OTHER, SELFPAY ==
--- NOTE | ~2025-01-23 | XR_ITS ---
EXAMINATION: XR LUMBOSACRAL SPINE CLINICAL INFORMATION: M54.16 - Radiculopathy, lumbar region COMPARISON: None available. TECHNIQUE: Three views of the lumbosacral spine. FINDINGS: Mild endplate sclerosis at multiple levels with small marginal osteophyte formation. No acute cortical disruption or malalignment. No lytic or blastic lesions. XR/XR lumbar spine 2-3V IMPRESSION: Mild multilevel thoracolumbar spondylosis. Electronically signed by: Renzo Cueva MD 01/23/2025 12:04 PM EDT
== END 2025-01-23 10:58 | disposition home or self-care (01) ==
LOC: HO.HMGCX 10:57
PROVIDERS: PCP Internal Medicine; Visit Provider Internal Medicine
DX: M54.16 Radiculopathy, lumbar region (principal); E78.9 Disorder of lipoprotein metabolism, unspecified; E66.01 Morbid (severe) obesity due to excess calories; Z68.41 Body mass index [BMI] 40.0-44.9, adult; Z13.31 Encounter for screening for depression
CPT/HCPCS: 72100; 96127

== ENCOUNTER → 2025-01-23 11:32 | Outpatient (BNV) | payer OTHER, SELFPAY | PROVIDERS: PCP Internal Medicine; Visit Provider Radiology Diagnostic Radiology | DX: M47.815 Spondylosis without myelopathy or radiculopathy, thoracolumbar region (principal) | CPT/HCPCS: 72100 ==

== ENCOUNTER 2025-02-26 08:48 | Outpatient (AMB) | payer OTHER, SELFPAY ==
--- NOTE | 2025-02-26 08:56 | A.OFFPC_ITS ---
Intake Visit Reasons: meds anxiety - forms Allergies No Known Allergies Allergy (Verified 01/23/25 11:03) Medication List - Last Reconciled 02/26/25 by Francis Pozo MD albuterol sulfate 90 mcg/actuation 1 inh inhalation QID PRN blood pressure monitor check blood pressure daily and as needed NS cholecalciferol (vitamin D3) 1,250 mcg PO QWEEK fluticasone propionate 50 mcg/actuation (Flonase Allergy Relief) 1 spray intranasal DAILY PRN magnesium oxide 400 mg PO DAILY 90 days MDD 400mg pyridoxine (vitamin B6) 250 mg PO DAILY MDD 250mg Tobacco use date assessed: 01/23/25 Dental Screening Dental Screen Date: 01/23/25 HPI meds anxiety - forms HPI Details History - The patient is a 49-year-old female pr esenting with exacerbation of social anxiety disorder following the announcement of her work transitioning back to a hybrid office schedule. 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 Initially introduced to remote work due to anxiety and stressful conditions in-office, approved by her employer for part-time remote work before COVID-19. - Anxiety significantly escalated after the announcement of hybrid work resumption, citing overwhelming and crowded conditions in the office. - Precipitating factors include loud env ironments and social gatherings; she experiences anxiety, feelings of being overwhelmed, nervousness, palpitations, and inability to concentrate. - Despite previous in-office work, initi al anxiety emerged shortly thereafter, leading to therapy commencement in April 2018. - Reports increased anxiety and germ-rel ated fear since COVID-19 onset, resulting in avoidance of public places and personal protective measures for hygiene. - Prefers remote work due to its contrib ution to a peaceful work environment and reduced anxiety symptoms. Medical History: - Social Anxiety Disorder, exacerbated b y office work environments. 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 - Engaged in remote work primarily requi ring focus on listening to call center calls. - Prefers home due to peaceful working e nvironment; struggles with anxiety in crowded and noisy settings. - No children; describes lifestyle as a homebody, significantly limiting social interactions and public excursions, with heightened germophobia [id number]. Problem List - Social Anxiety Disorder Patient Instructions - Start taking Lexapro 5 mg once daily, preferably at night, to minimize potential side effects. - Continue therapy sessions and reach ou t to your therapist as necessary. - Consider gradual exposure to social en vironments as comfortable. 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 - Plan to follow up in three to four wee ks to assess progress with the new medication regimen. Review of Systems - General: No fever no chills - Neurological: No headaches no dizziness - Ear nose throat: No sore throat no hearing difficulty no ear pain - Cardiovascular: No syncope, no chest pain, no palpitations - Gastrointestinal: No nausea vomiting or diarrhea PFSH Social History Housing: House Patient Tobacco Use Status: Never used Tobacco e-Cigarette/Vaping Use: Never Used service: No Current occupational status: employed Cognitive needs: No Hearing needs: No Vision needs: Yes Questionnaire Thrive Questionnaire Date Thrive assessed: 01/22/25 I am a: Patient What is your living situation today?: I have a steady place to live Within the past 12 months, did the food you bought not last and you didn't have the money to get more?: Never true Within the past 12 months, did you worry whether your food would run out before you got money to buy more?: Never true Do you have trouble paying for medicines?: No Do you have trouble getting transportation to medical appointments?: No Do you have trouble paying your heating and electricity bill?: No Do you have trouble taking care of your child, family member or friend?: No Do you have trouble with day-to-day activities such as bathing, preparing meals, shopping, managing finances, etc.?: No Are you currently unemployed and looking for a job?: No Are you interested in more education?: I choose not to answer this question Please select the resources that you would like help with: None Currently or been in a relationship where the following occur: No concerns reported THRIVE Score: 0 MOLINA-7 AMB Questionnaire MOLINA-7 Date MOLINA - 7 assessed: 08/21/24 Source: Developed by Drs. Mariano Turner, Desiree HartmanReilly and colleagues, with an educational scarlett from [employer]. Physical exam (Primary Care) Tobacco/Smoking Status: Tobacco use Status Tobacco use date assessed 01/23/25 02/26/25 08:57 Patient Tobacco Use Status Never used Tobacco 02/26/25 08:57 e-Cigarette/Vaping Use Never Used 02/26/25 08:57 Thrive Assessment: Date of Thrive Assessment Date Thrive assessed 01/22/25 02/26/25 08:57 Currently or been in a relationship where the following occur: No concerns reported Telehealth Telehealth Telehealth Platform: [employer] Location of provider rendering services: practice address Location of patient: address on file Patient Identification confirmed using: Name, : Yes Telehealth method: video Patient verbally consented to treatment: Yes Patient verbally consented to billing insurance company: Yes Patient informed of any privacy concerns related to visit: Yes Coding Level of Care Code Tele Est Pt Level 4 (49126) Diagnoses Social anxiety disorder F40.10 Work environment adverse effect Z56.9 Time Spent (min) 30 Comment face to face / paper work / coordination of care Assessment & Plan Assessment & Plan (1) Social anxiety disorder: Code(s): F40.10 - Social phobia, unspecified Category: Medical (2) Work environment adverse effect: Code(s): Z56.9 - Unspecified problems related to employment Category: Social Hx Plan History - The patient is a 49-year-old female presenting with exacerbation of social anxiety disorder following the announcement of her work transitioning back to a hybrid office schedule. - The patient has worked from home for three and a half years, with previous in- office work from December 2017 until COVID-related changes. Initially introduced to remote work due to anxiety and stressful conditions in-office, approved by her employer for part-time remote work before COVID-19. - Anxiety significantly escalated after the announcement of hybrid work resumpt ion, citing overwhelming and crowded conditions in the office. - Precipitating factors include loud environments and social gatherings; she experiences anxiety, feelings of being overwhelmed, nervousness, palpitations, and inability to concentrate. - Despite previous in-office work, initial anxiety emerged shortly thereafter, leading to therapy commencement in April 2018. - Reports increased anxiety and germ-related fear since COVID-19 onset, resulting in avoidance of public places and personal protective measures for hygiene. - Prefers remote work due to its contribution to a peaceful work environment and reduced anxiety symptoms. Medical History: - Social Anxiety Disorder, exacerbated by office work environments. 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 - Engaged in remote work primarily requiring focus on listening to call center calls. - Prefers home due to peaceful working environment; struggles with anxiety in crowded and noisy settings. - No children; describes lifestyle as a homebody, significantly limiting social interactions and public excursions, with heightened germophobia [id number]. Problem List - Social Anxiety Disorder Patient Instructions - Start taking Lexapro 5 mg once daily, preferably at night, to minimize potential side effects. - Continue therapy sessions and reach out to your therapist as necessary. - Consider gradual exposure to social environments as comfortable. 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 - Plan to follow up in three to four weeks to assess progress with the new medication regimen. Medications: New escitalopram oxalate (Lexapro) 5 mg PO DAILY 30 tabs 0RF
== END 2025-02-26 09:10 | disposition home or self-care (01) ==
LOC: HO.HMCC 08:49
PROVIDERS: PCP Internal Medicine; Visit Provider Internal Medicine
DX: F40.10 Social phobia, unspecified (principal); Z56.9 Unspecified problems related to employment

== ENCOUNTER 2025-03-19 08:21 | Outpatient (AMB) | payer OTHER, SELFPAY ==
--- NOTE | 2025-03-19 09:03 | A.OFFPC_ITS ---
Intake Visit Reasons: 3 weeks f/u Allergies escitalopram (From Lexapro) Adverse Reaction (Mild, Verified 03/19/25 19:03) Headache Medication List - Last Reconciled 03/19/25 by Francis Pozo MD albuterol sulfate 90 mcg/actuation 1 inh inhalation QID PRN blood pressure monitor check blood pressure daily and as needed NS cholecalciferol (vitamin D3) 1,250 mcg PO QWEEK escitalopram oxalate (Lexapro) 5 mg PO DAILY fluticasone propionate 50 mcg/actuation (Flonase Allergy Relief) 1 spray intranasal DAILY PRN magnesium oxide 400 mg PO DAILY 90 days MDD 400mg pyridoxine (vitamin B6) 250 mg PO DAILY MDD 250mg Tobacco use date assessed: 01/23/25 Dental Screening Dental Screen Date: 01/23/25 HPI 3 weeks f/u HPI Details f/u new medication initiation / Lexapro - The patient is a 49-year-old female pr esenting with exacerbation of social anxiety disorder following the announcement of her work transitioning back to a hybrid office schedule. 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 Initially introduced to remote work due to anxiety and stressful conditions in-office, approved by her employer for part-time remote work before COVID-19. - Anxiety significantly escalated after the announcement of hybrid work resumption, citing overwhelming and crowded conditions in the office. - Precipitating factors include loud env ironments and social gatherings; she experiences anxiety, feelings of being overwhelmed, nervousness, palpitations, and inability to concentrate. - Despite previous in-office work, initi al anxiety emerged shortly thereafter, leading to therapy commencement in April 2018. - Reports increased anxiety and germ-rel ated fear since COVID-19 onset, resulting in avoidance of public places and personal protective measures for hygiene. - Prefers remote work due to its contrib ution to a peaceful work environment and reduced anxiety symptoms. 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. - Engaged in remote work primarily requi ring focus on listening to call center calls. - Prefers home due to peaceful working e nvironment; struggles with anxiety in crowded and noisy settings. - No children; describes lifestyle as a homebody, significantly limiting social interactions and public excursions, with heightened germophobia [id number]. Problem List - Social Anxiety Disorder Patient Instructions - Continue therapy sessions and reach ou t to your therapist as necessary. - Consider gradual exposure to social en vironments as comfortable. Review of Systems - General: No fever no chills - Neurological: No headaches no dizziness - Ear nose throat: No sore throat no hearing difficulty no ear pain - Cardiovascular: No syncope, no chest pain, no palpitations - Gastrointestinal: No nausea vomiting or diarrhea [facility] Social History Housing: House Patient Tobacco Use Status: Never used Tobacco e-Cigarette/Vaping Use: Never Used service: No Current occupational status: employed Cognitive needs: No Hearing needs: No Vision needs: Yes Questionnaire Thrive Questionnaire Date Thrive assessed: 01/22/25 MOLINA-7 AMB Questionnaire MOLINA-7 Date MOLINA - 7 assessed: 08/21/24 Source: Developed by Drs. Mariano Turner, Desiree Hartman, Reilly Rivera and colleagues, with an educational scarlett from [employer]. Physical exam (Primary Care) Tobacco/Smoking Status: Tobacco use Status Tobacco use date assessed 01/23/25 03/19/25 09:03 Patient Tobacco Use Status Never used Tobacco 03/19/25 09:03 e-Cigarette/Vaping Use Never Used 03/19/25 09:03 Thrive Assessment: Date of Thrive Assessment Date Thrive assessed 01/22/25 03/19/25 09:03 Telehealth Telehealth Telehealth Platform: [facility] Location of provider rendering services: practice address Location of patient: address on file Patient Identification confirmed using: Name, : Yes Telehealth method: video Patient verbally consented to treatment: Yes Patient verbally consented to billing insurance company: Yes Patient informed of any privacy concerns related to visit: Yes Minutes spent on Phone/Video with Pt.: 13 Coding Level of Care Code Tele Est Pt Level 3 (05799) Diagnoses Social anxiety disorder F40.10 Work environment adverse effect Z56.9 Assessment & Plan Assessment & Plan (1) Social anxiety disorder: Code(s): F40.10 - Social phobia, unspecified Category: Medical (2) Work environment adverse effect: Code(s): Z56.9 - Unspecified problems related to employment Category: Social Hx Plan f/u new medication initiation / Lexapro - The patient is a 49-year-old female presenting with exacerbation of social anxiety disorder following the announcement of her work transitioning back to a hybrid office schedule. - The patient has worked from home for three and a half years, with previous in- office work from December 2017 until COVID-related changes. Initially introduced to remote work due to anxiety and stressful conditions in-office, approved by her employer for part-time remote work before COVID-19. - Anxiety significantly escalated after the announcement of hybrid work resumption, citing overwhelming and crowded conditions in the office. - Precipitating factors include loud environments and social gatherings; she experiences anxiety, feelings of being overwhelmed, nervousness, palpitations, and inability to concentrate. - Despite previous in-office work, initial anxiety emerged shortly thereafter, leading to therapy commencement in April 2018. - Reports increased anxiety and germ-related fear since COVID-19 onset, resulting in avoidance of public places and personal protective measures for hygiene. - Prefers remote work due to its contribution to a peaceful work environment and reduced anxiety symptoms. 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. - Engaged in remote work primarily requiring focus on listening to call center calls. - Prefers home due to peaceful working environment; struggles with anxiety in crowded and noisy settings. - No children; describes lifestyle as a homebody, significantly limiting social interactions and public excursions, with heightened germophobia [id number]. Problem List - Social Anxiety Disorder Patient Instructions - Continue therapy sessions and reach out to your therapist as necessary. - Consider gradual exposure to social environments as comfortable. Medications: New lorazepam 0.5 mg PO DAILY PRN 30 tabs 0RF anxiety
== END 2025-03-19 09:16 | disposition home or self-care (01) ==
LOC: HO.HMCC 08:21
PROVIDERS: PCP Internal Medicine; Visit Provider Internal Medicine
DX: F40.10 Social phobia, unspecified (principal); Z56.9 Unspecified problems related to employment

== ENCOUNTER 2025-06-26 07:54 | Outpatient (REF) | payer OTHER, SELFPAY ==
[2025-06-26 10:16] LABS: MANUAL DIFF FLAG NO
[2025-06-26 10:37] LABS: Hematocrit 41.7 % (37.0-47.0); Hemoglobin 13.9 g/dl (12.0-16.0); Imm Gran Abs Auto 0.03 X10*3/uL (0.00-0.03); Imm Gran Pct Auto 0.4 % (0.0-0.4); Lymphocytes Absolute Auto 2.0 X10*3/uL (1.2-4.9); Mean Corpuscular HGB Conc 33.3 g/dl (31.0-35.0); Mean Corpuscular Hemoglobin 27.5 pg (27.0-33.0); Mean Corpuscular Volume 82.6 fL (80.0-98.0); NRBC Abs Auto 0.000 X10*3/uL (0.0-0.012); NRBC Pct Auto 0.0 /100WBC (0.0-0.2); Platelet Count 333 X10*3/uL (160-400); Red Blood Count 5.05 X10*6/uL (4.20-5.50); White Blood Count 7.9 X10*3/uL (4.8-10.8)
[2025-06-26 11:00] LABS: Alanine Aminotransferase 17 U/L (0-31); Albumin Level 4.6 g/dL (3.5-5.0); Alkaline Phosphatase 71 U/L (39-117); Anion Gap 13 (12-20); Aspartate Amino Transferase 20 U/L (5-31); Blood Urea Nitrogen 11 mg/dL (9-16); Calcium 9.7 mg/dL (8.4-10.2); Carbon Dioxide 27 mmol/L (22-29); Chloride 102 mmol/L (96-108); Cholesterol 248 mg/dL (<200); Estimated Glomerular Filt Rate > 60; HDL Cholesterol 57 mg/dL (>40); Potassium 4.2 mmol/L (3.3-5.1); Sodium 138 mmol/L (135-145); Total Protein 7.7 g/dL (6.5-8.0); Triglycerides 165 mg/dL (<150)
[2025-06-26 11:59] LABS: Free T4 (Free Thyroxine) 1.13 ng/dL (0.71-1.85)
[2025-06-30 18:39] LABS: Vitamin D 25-OH, D2 <4 ng/mL; Vitamin D 25-OH, D3 41 ng/mL; Vitamin D 25-OH, Total 41 ng/mL (30-100)
== END 2025-06-26 07:55 | disposition home or self-care (01) ==
LOC: HO.HMGCLDS 07:54
PROVIDERS: PCP Internal Medicine; Visit Provider Internal Medicine
DX: Z00.01 Encounter for general adult medical examination with abnormal findings (principal); M54.16 Radiculopathy, lumbar region; E78.9 Disorder of lipoprotein metabolism, unspecified; E66.01 Morbid (severe) obesity due to excess calories; R03.0 Elevated blood-pressure reading, without diagnosis of hypertension; E78.00 Pure hypercholesterolemia, unspecified; M25.511 Pain in right shoulder
CPT/HCPCS: 36415; 80053; 80061; 82306; 84439; 84443; 85025; 96127

== ENCOUNTER 2025-06-26 07:54 | Outpatient (AMB) | payer OTHER, SELFPAY ==
--- NOTE | 2025-06-26 08:08 | A.OFFPC_ITS ---
Vital Signs 06/26/25 08:09 Height 5 ft 3 in Weight 233 lb BMI 41.3 BP 138/84 Blood Pressure Location Lt brachial Position Sitting Respiration 16 Pulse 93 Pulse Source Pulse Oximeter Temp 98.0 F Temp Source Oral Pulse Oximetry (%) 97 Oxygen Delivery Method Room Air Intake Visit Reasons: PE Instrumentation Supervisor Required: No Accompanied by: Self / Same As Patient Allergies escitalopram (From Lexapro) Adverse Reaction (Mild, Verified 06/26/25 08:13) Headache Medication List - Last Reconciled 06/26/25 by Francis Pozo MD albuterol sulfate 90 mcg/actuation 1 inh inhalation QID PRN blood pressure monitor check blood pressure daily and as needed NS cholecalciferol (vitamin D3) 1,250 mcg PO QWEEK fluticasone propionate 50 mcg/actuation (Flonase Allergy Relief) 1 spray intranasal DAILY PRN lorazepam 0.5 mg PO DAILY PRN magnesium oxide 400 mg PO DAILY 90 days MDD 400mg pyridoxine (vitamin B6) 250 mg PO DAILY MDD 250mg Tobacco use date assessed: 06/26/25 Dental Screening Dental Screen Date: 06/26/25 Did you have a dental visit in the last 12 months?: Yes Did you have a dental problem in the last 6 months where you did not have access to dental care?: No Was dental information given to patient?: Patient has dentist HPI PE HPI Details History of Present Illness The patient is a 49-year-old female presenting for a physical exam. Prehypertension: - The patient's blood pressure was 138/8 4 mmHg during the visit, consistent with a reading of 136/84 mmHg in January. - She has a family history of high blood pressure. - The patient reports that home blood pr essure readings have reached as high as 140 mmHg, although she has not checked it recently. - She has been attempting to lose weight and eat healthier. Hypercholesterolemia: - Laboratory results from the previous y ear showed an LDL cholesterol level of 176 mg/dL. - The patient was ready for fasting [employer] work at this visit. Shoulder Pain: - The patient reports intermittent Rt sh oulder pain. - She attributes the pain to doing Deborah and notes it is worse on days with excessive movement. Health Maintenance: - The patient is overdue for a mammogram and needs to schedule one. - She has an upcoming ELIGIBILITY SPECIALIST visit sched uled in a few weeks, with her last visit being in June of the previous year. - She is due for colorectal cancer william brush and has agreed to a Cologuard test. - The patient has not yet received a flu vaccine and deferred it during this visit. Medical History: - Prehypertension - Hypercholesterolemia Social History: - Exercise: The patient participates in ice. - Diet: She reports efforts to eat healt hier and lose weight. [place] of Care - ELIGIBILITY SPECIALIST: The patient will be seeing a jorge a olmos at [facility] ELIGIBILITY SPECIALIST. - Radiology: The patient was directed to go to [facility] for her mammogram. Patient Instructions - An order for a mammogram has been plac ed for the [facility] in [place]. - You will receive a Cologuard kit in e mail; please follow the instructions and mail it back. - You can go have your blood tests done today, as the order is in and you are fasting. - Continue to check your blood pressure at home and let us know if the top number goes above 140. - Keep your scheduled ELIGIBILITY SPECIALIST appointment . - Continue with your diet and exercise, and try to lose some weight. - Be careful while doing Deborah to avoid making your shoulder pain worse. - Watch the mole on your skin and let us know if it gets bigger or darker. - Please return for a follow-up visit in three months to recheck your blood pressure and to go over labs. Review of Systems - General: No fever no chills - Neurological: No headaches no dizzin ess - Ear nose throat: No sore throat no hearing difficulty no ear pain - Cardiovascular: No syncope, no chest pain, no palpitations - Gastrointestinal: No nausea vomiting or diarrhea - Endocrine: No polyuria polydipsia no heat intolerance - Genitourinary: No dysuria - Skin: No new complaints Physical Exam General: Cooperative, healthy appearing, comfortable, no acute distress Orientation: Patient oriented x3 Head: Normal to inspection Ears: Within normal limit visually Nose: Normal external nose present Face and sinus: Normal facial exam Eyes: Appearance normal, extraocular movement intact pupils reactive Neck: Normal visual inspection and supple Respiratory: Normal respiratory effort and able to speak in complete sentences. Clear to auscultation, no stridor Cardiovascular: S1 and S2 RRR GI: Normal to inspection. Soft to palpation and nontender Skin: Turgor normal, no acute findings. Noted benign seborrheic keratosis Neuro: Patient oriented x3, motor sensory intact, balance intact, tandem pass Extremities: Normal to inspection. Right shoulder soreness noted, likely due to overuse from Deborah exercises. . [facility] Social History Housing: House Patient Tobacco Use Status: Never used Tobacco e-Cigarette/Vaping Use: Never Used service: No Current occupational status: employed Cognitive needs: No Hearing needs: No Vision needs: Yes Questionnaire PHQ-9 Over the last 2 weeks, how often have you been bothered by any of the following problems? 1. Little interest or pleasure in doing things: not at all 2. Feeling down, depressed, or hopeless: not at all 3. Trouble falling or staying asleep, or sleeping too much: not at all 4. Feeling tired or having little energy: not at all 5. Poor appetite or overeating: not at all 6. Feeling bad about yourself - or that you are a failure or have let yourself or your family down: not at all 7. Trouble concentrating on things, such as reading the newspaper or watching television: not at all 8. Moving or speaking so slowly that other people could have noticed. Or the opposite - being so fidgety or restless that you have been moving around a lot more than usual: not at all 9. Thoughts that you would be better off or of hurting yourself in some way: not at all Total score: 0 Depression Screening Interpretation: Negative Depression Screening Done: Yes [id number] - PHQ-9 Billing: Yes Source: Developed by Drs. Mariano Turner, Desiree Hartman, Reilly Rivera and colleagues, with an educational scarlett from [employer]. Thrive Questionnaire Date Thrive assessed: 01/22/25 I am a: Patient What is your living situation today?: I have a steady place to live Within the past 12 months, did the food you bought not last and you didn't have the money to get more?: Never true Within the past 12 months, did you worry whether your food would run out before you got money to buy more?: Never true Do you have trouble paying for medicines?: No Do you have trouble getting transportation to medical appointments?: No Do you have trouble paying your heating and electricity bill?: No Do you have trouble taking care of your child, family member or friend?: No Do you have trouble with day-to-day activities such as bathing, preparing meals, shopping, managing finances, etc.?: No Are you currently unemployed and looking for a job?: No Are you interested in more education?: I choose not to answer this question Please select the resources that you would like help with: None Currently or been in a relationship where the following occur: No concerns reported THRIVE Score: 0 MOLINA-7 AMB Questionnaire MOLINA-7 Date MOLINA - 7 assessed: 06/26/25 Feeling nervous, anxious, or on edge: 0 = Not at all Not being able to stop or control worryin = Not at all Worrying too much about different things: 0 = Not at all Trouble relaxin = Not at all Being so restless that it is hard to sit still: 0 = Not at all Becoming easily annoyed or irritable: 0 = Not at all Feeling afraid as if something awful might happen: 0 = Not at all Total MOLINA-7 score (0-4 normal; 5-9 mild; 10-14 moderate; 15-21 severe): 0 Source: Developed by Drs. Mariano Turner, Desiree Hartman, Reilly Rivera and colleagues, with an educational scareltt from [employer]. MOLINA-7 Assessment Billing MOLINA-7 Assessment Tool: MOLINA-7 Assessment [id number] Physical exam (Primary Care) Vital Signs: Last Vital Signs Temp 98.0 F 06/26/25 08:09 Pulse 93 06/26/25 08:09 Resp 16 06/26/25 08:09 BP 138/84 06/26/25 08:09 Pulse Ox 97 06/26/25 08:09 Oxygen Delivery Method Room Air 06/26/25 08:09 BMI result Body Mass Index 41.3 Tobacco/Smoking Status: Tobacco use Status Tobacco use date assessed 06/26/25 06/26/25 08:12 Patient Tobacco Use Status Never used Tobacco 06/26/25 08:12 e-Cigarette/Vaping Use Never Used 06/26/25 08:12 PHQ-9: PHQ-9 Score PHQ-9: Total score 0 06/26/25 08:38 Depression Screening Interpretation: Negative Thrive Assessment: Date of Thrive Assessment Date Thrive assessed 01/22/25 06/26/25 08:12 Currently or been in a relationship where the following occur: No concerns reported Coding Level of Care Code Est Pt Level 3 (20655) Est Pt Prev Care 40-64y(11816) Diagnoses Encounter for general adult medical examination with abnormal findings Z00.01 Lipid disorder E78.9 Pre-hypertension R03.0 Morbid obesity due to excess calories E66.01 Additional Codes MOLINA-7 Assessment Billing - MOLINA-7 Assessment Tool: MOLINA-7 Assessment [id number] ([id number]) PHQ-9 - 00741 - PHQ-9 Billing: Yes ([id number]) Assessment & Plan Assessment & Plan (1) Encounter for general adult medical examination with abnormal findings: Code(s): Z00.01 - Encounter for general adult medical examination with abnormal findings Category: Medical (2) Lipid disorder: Code(s): E78.9 - Disorder of lipoprotein metabolism, unspecified Category: Medical (3) Pre-hypertension: Code(s): R03.0 - Elevated blood-pressure reading, without diagnosis of hypertension Category: Medical (4) Morbid obesity due to excess calories: Comment: If your BMI is between 25 and 29.9, you are overweight. If your BMI is 30 or greater, you are obese. ___ Being obese is a problem, because it increases the risks of many different health problems. It can also make it hard for you to move, breathe, and do other things that people who are at a healthy weight can do easily. Plus, being obese can be hard emotionally. ___ What are the health risks of being obese? Being obese increases a persons risk of developing many health problems. Here are just a few examples: __ Diabetes High blood pressure, High cholesterol, Heart disease (including heart attacks) Stroke, Sleep apnea (a disorder in which you stop breathing for short periods while asleep) Asthma, Cancer __ Does being obese shorten a persons life? Yes. Studies show that people who are obese younger than people who are a healthy weight. They also show that the risk of goes up the heavier a person is. The degree of increased risk depends on how long the person has been obese, and on what other medical problems he or she has. , Reduce your carbohydrate intake and choose carbs that are complex. Remember as a general rule of thumb, avoid highly processed foods. If it's white and soft, it's probably been stripped of its nutritional value. Change white bread to whole wheat bread, white rice to brown rice, white potatoes to sweet potatoes, white pasta to whole wheat pasta. Monitor portion sizes too: protein should be no bigger than your fist. Limit your red meat intake to only once or twice a wk. Eat more white meat but make sure to avoid creamy sauces etc. Broiling, baking or grilling is best. Increase dark, green leafy vegetables and fruits. . Code(s): E66.01 - Morbid (severe) obesity due to excess calories Category: Medical Plan Prehypertension: - The patient's blood pressure was 138/84 mmHg during the visit, consistent with a reading of 136/84 mmHg in January. - She has a family history of high blood pressure. - The patient reports that home blood pressure readings have reached as high as 140 mmHg, although she has not checked it recently. - She has been attempting to lose weight and eat healthier. Hypercholesterolemia: - Laboratory results from the previous year showed an LDL cholesterol level of 176 mg/dL. - The patient was ready for fasting blood work at this visit. Shoulder Pain: - The patient reports intermittent Rt shoulder pain. - She attributes the pain to doing Deborah and notes it is worse on days with excessive movement. Health Maintenance: - The patient is overdue for a mammogram and needs to schedule one. - She has an upcoming ELIGIBILITY SPECIALIST visit scheduled in a few weeks, with her last visit being in June of the previous year. - She is due for colorectal cancer screening and has agreed to a Cologuard test. - The patient has not yet received a flu vaccine and deferred it during this visit. Medical History: - Prehypertension - Hypercholesterolemia Social History: - Exercise: The patient participates in Deborah. - Diet: She reports efforts to eat healthier and lose weight. [place] of Care - ELIGIBILITY SPECIALIST: The patient will be seeing a provider at [facility] ELIGIBILITY SPECIALIST. - Radiology: The patient was directed to go to [facility] for her mammogram. Patient Instructions - [facility] [place]. - You will receive a Cologuard kit in the mail; please follow the instructions and mail it back. - You can go have your blood tests done today, as the order is in and you are fasting. - Continue to check your blood pressure at home and let us know if the top number goes above 140. - Keep your scheduled ELIGIBILITY SPECIALIST appointment. - Continue with your diet and exercise, and try to lose some weight. - Be careful while doing Deborah to avoid making your shoulder pain worse. - Watch the mole on your skin and let us know if it gets bigger or darker. - Please return for a follow-up visit in three months to recheck your blood pressure and to go over labs. . Orders: Orders MM tomosynthesis screening BI Today Z12.31 - Encounter for screening mammogram for malignant neoplasm of breast Referrals Cologuard Test Z12.11 - Encounter for screening for malignant neoplasm of colon
[2025-06-26 08:09] VITALS: BP 138/84; PULSE 93; RESP 16; TEMP 36.7; O2SAT 97; BMI 41.3
== END 2025-06-26 08:35 | disposition home or self-care (01) ==
LOC: HO.HMCC 07:54
PROVIDERS: PCP Internal Medicine; Visit Provider Internal Medicine
DX: Z00.01 Encounter for general adult medical examination with abnormal findings (principal); E78.9 Disorder of lipoprotein metabolism, unspecified; E66.01 Morbid (severe) obesity due to excess calories; Z68.41 Body mass index [BMI] 40.0-44.9, adult; R03.0 Elevated blood-pressure reading, without diagnosis of hypertension

== ENCOUNTER 2025-07-08 06:05 | Outpatient (REF) | payer OTHER, SELFPAY | END 2025-07-08 06:06 | disposition home or self-care (01) | LOC: HO.HMGCLDS 06:05 | PROVIDERS: PCP Internal Medicine; Visit Provider Internal Medicine | DX: Z13.29 Encounter for screening for other suspected endocrine disorder (principal); R73.9 Hyperglycemia, unspecified | CPT/HCPCS: 36415; 83036; 84443 ==